=== PATIENT | female | born 1950 | race Caucasian/White ===

== ENCOUNTER → 2019-04-18 | Outpatient (CLI) | payer MEDICARE | END | disposition home or self-care (01) | LOC: LAB 19:29 → LAB SHORT 19:29 | PROVIDERS: Nurse Practitioner | DX: Z01.419 Encounter for gynecological examination (general) (routine) without abnormal findings (principal) | CPT/HCPCS: G0145 ==

== ENCOUNTER → 2020-02-06 | Outpatient (CLI) | payer MEDICARE | END | disposition home or self-care (01) | LOC: LAB SHORT 15:00 → PLD 15:00 | DX: D48.5 Neoplasm of uncertain behavior of skin (principal) | CPT/HCPCS: 88305 ==

== ENCOUNTER → 2021-09-03 | Outpatient (CLI) | payer MEDICARE | END | disposition home or self-care (01) | LOC: LAB SHORT 10:59 → PLD 10:59 | DX: L57.0 Actinic keratosis (principal) | CPT/HCPCS: 88305 ==

== ENCOUNTER 2024-05-02 06:05 | Day surgery (SDC) | payer MEDICARE ==
[~2024-05-02] VITALS: Ht 170.2 cm; Wt 65.6 kg
[2024-05-02] MEDS ORDERED: ACET325 PO (06:38)
[2024-05-02] MEDS ORDERED: NS 1,000 ML IV ONE ×2 (06:55→10:13)
[2024-05-02] MEDS ORDERED: CefTRIAXone Sodium 2,000 MG in NS 100 ML IV SCH (07:05)
[2024-05-02] MEDS ORDERED: Acetaminophen 500 MG Tab ONE (07:08)
[2024-05-02] MEDS ORDERED: propofoL 20 ML IV ONE (07:19)
--- NOTE | 2024-05-02 07:22 | NUR ---
05/02/24 0722 Lenora Avalos 1 MG OF EPI ADDED TO FIRST BAG OF LR FOR IRREGATION
[2024-05-02] MEDS ORDERED: HYDROmorphone HCl/Pf 1MG SYR ONE (07:25)
[2024-05-02] MEDS ORDERED: EPINEPhrine HCl 1 MG/ML 1ML Amp XX ONE ×2 (07:31→08:05)
--- NOTE | 2024-05-02 07:39 | NUR ---
05/02/24 0739 CLIF MCKOY 0732 TIMEOUT RIGHT SHOULDER BLOCK AT BEDSIDE WITH ANESTHESIA. BLOCK COMPLETED 07, STARTED AT 0735. NO COMPLICATIONS.
[2024-05-02] MEDS ORDERED: Magnesium Sulfate 500 MG / ML 2ML Vial IV ONE (08:20)
[2024-05-02] MEDS ORDERED: Metoclopramide HCl 5MG / ML 2ML Vial ONE (08:46)
[2024-05-02] MEDS ORDERED: Ondansetron HCl 2 MG / ML 2ML Vial ONE (08:46)
[2024-05-02] MEDS ORDERED: ePHEDrine Sulfate 50 MG/ML 1ML Injection ONE (08:48)
[2024-05-02] MEDS ORDERED: Sugammadex Sodium 200 MG/2ML SDV (100 MG/ML) ONE (09:14)
[2024-05-02 10:33] VITALS: BP 120/65
[2024-05-02] MEDS ORDERED: Ondansetron 4 MG SoluTab ONE (11:16)
--- NOTE | 2024-05-02 15:04 | NUR ---
05/02/24 1504 Imani Rodriguez AT APPROX 1100, WHILE ASSISTING WITH DRESSING PT, SHE BEGAN TO VOMIT SUDDENLY. PT GIVEN ZOFRAN 4MG ODT PER DR. MCKNIGHT. PT'S NAUSEA RESOLVED NAD D/C'D HOME.
== END 2024-05-02 11:15 | disposition home or self-care (01) ==
LOC: ORSCSDS 06:05
PROVIDERS: Orthopaedic Surgery
PROC: 0RNJ4ZZ Release Right Shoulder Joint, Percutaneous Endoscopic Approach (ICD-10-PCS; principal; 2024-05-02 07:30)
DX: M75.121 Complete rotator cuff tear or rupture of right shoulder, not specified as traumatic (principal); M75.41 Impingement syndrome of right shoulder; M75.21 Bicipital tendinitis, right shoulder
CPT/HCPCS: A9270; C1713; J0171; J0696; J1171; J2405; J2704; J2765; J3475; J7030